=== PATIENT | female | born 1960 | race Caucasian/White ===

== ENCOUNTER 2019-01-26 09:10 | Day surgery (SDC) | payer BC ==
[~2019-01-26 09:10] MED LIST: Bupivacaine 0.25%/EPINEPHrine 1:200,000 10 ML SDV INJECT ONE; Lactated Ringers 1,000 ML IV SCH; Lidocaine 2% 5 ML SDV ONE; Midazolam 1 MG/ML 2 ML SDV ONE; Propofol 200 MG/20 ML SDV ONE; ceFAZolin 2 GM in Premix Bag 1 BAG IV ONE; fentaNYL 100 MCG/2 ML SDV ONE
--- NOTE | 2019-01-26 09:55 | PCM.PREANE ---
Preanesthetic Assessment - Anesthesia/Transfusion/Family Hx Anesthesia History: Prior Anesthesia Without Reaction Family History of Anesthesia Reaction: No Transfusion History: No Prior Transfusion(s) Intubation History: Unknown - Review of Systems General: No Symptoms Pulmonary: No Symptoms Cardiovascular: No Symptoms Gastrointestinal: No Symptoms Neurological: No Symptoms Other: Reports: None - Physical Assessment Height: 1.65 m Weight: 117.027 kg ASA Class: 2 Mental Status: Alert & Oriented x3 Airway Class: Mallampati = 2 Dentition: Reports: Normal Dentition, Peerless(s) (multiple One is upper front , right), Implants (x1 lower left (back)) Thyro-Mental Finger Breadths: 3 Mouth Opening Finger Breadths: 3 ROM/Head Extension: Full Lungs: Clear to Auscultation, Normal Respiratory Effort Cardiovascular: Regular Rate, Regular Rhythm - Allergies Allergies/Adverse Reactions: Allergies Allergy/AdvReac Type Severity Reaction Status Date / Time enalapril maleate Allergy Cough Verified 01/23/19 07:38 [From Vasotec] enalaprilat dihydrate Allergy Cough Verified 01/23/19 07:38 [From Vasotec] Sulfa (Sulfonamide Allergy Rash Verified 01/23/19 07:38 Antibiotics) - Blood Blood Available: No - Anesthesia Plan Pre-Op Medication Ordered: None - Acknowledgements Anesthesia Type Planned: MAC Pt an Appropriate Candidate for the Planned Anesthesia: Yes Alternatives and Risks of Anesthesia Discussed w Pt/Guardian: Yes Pt/Guardian Understands and Agrees with Anesthesia Plan: Yes PreAnesthesia Questionnaire HEENT History: Reports: Other (See Below) Other HEENT History: wears glasses, has one dental implant Cardiovascular History: Reports: Hypertension Respiratory History: Reports: None Gastrointestinal History: Reports: None Genitourinary History: Reports: None PATTERN SETTER History: Reports: Musculoskeletal History: Reports: Osteoarthritis, Other (See Below) (bilat. thumb trigger finger) Neurological History: Reports: None Psychiatric History: Reports: None Endocrine/Metabolic History: Reports: Hypothyroidism, Obesity/BMI 30+ Hematologic History: Reports: None Immunologic History: Reports: None Oncologic (Cancer) History: Reports: None Dermatologic History: Reports: None - Past Surgical History Head Surgeries/Procedures: Reports: None HEENT Surgical History: Reports: None Cardiovascular Surgical History: Reports: None Respiratory Surgical History: Reports: None GI Surgical History: Reports: Bariatric Procedure Other GI Surgeries/Procedures: bariatric gastric banding Female Surgical History: Reports: Other (See Below) Other Female Surgeries/Procedures: ovarian cystectomy Endocrine Surgical History: Reports: None Neurological Surgical History: Reports: None Musculoskeletal Surgical History: Reports: Carpal Tunnel (bilateral), Shoulder Surgery (left) Oncologic Surgical History: Reports: None Dermatological Surgical History: Reports: None - SUBSTANCE USE Smoking Status *Q: Never Smoker Recreational Drug Use History: No - HOME MEDS Home Medications: Home Meds Calcium Carbonate/Vitamin D3 [Calcium 500 mg Chewable Tablet] 1 tab.chew PO DAILY 05/21/16 [History] Diclofenac Sodium [Voltaren] 50 mg PO ASDIRECTED 05/21/16 [History] Fish Oil/[place]-3 Fatty Acids [Fish Oil 1,000 MG] 1 tab PO DAILY 05/21/16 [ History] Levothyroxine Sodium [Synthroid] 125 mcg PO DAILY 05/21/16 [History] Multivitamin [Multivitamins] 1 tab PO DAILY 05/21/16 [History] amLODIPine [Norvasc] 10 mg PO DAILY 05/21/16 [History] Vit B12/Fa/Pyridoxine HCl/AA15 [Glycotrol] 1 tab PO DAILY 05/24/16 [History] - CURRENT (IN HOUSE) MEDS Current Meds: Current Medications Lactated Ringer's (Ringers, Lactated) 1,000 mls @ 125 mls/hr IV ASDIRECTED RIO Discontinued Medications Bupivacaine HCl/Epinephrine Bitart (Marcaine 0.25%/Epinephrine 1:200,000) 10 ml INJECT ONETIME ONE Stop: 01/26/19 08:01 Fentanyl (Sublimaze) Confirm Administered Dose 100 mcg .ROUTE .STK-MED ONE Stop: 01/26/19 07:41 Cefazolin Sodium/Dextrose 2 gm (/ Premix) 50 mls @ 100 mls/hr IV ONETIME ONE Stop: 01/26/19 08:29 Lidocaine (Xylocaine-Mpf 2%) Confirm Administered Dose 5 ml .ROUTE .STK-MED ONE Stop: 01/26/19 07:41 Midazolam HCl (Versed 1 Mg/Ml) Confirm Administered Dose 2 mg .ROUTE .STK-MED ONE Stop: 01/26/19 07:41 Propofol (Diprivan 20 Ml) Confirm Administered Dose 200 mg .ROUTE .STK-MED ONE Stop: 01/26/19 07:41
[2019-01-26] MEDS ORDERED: Bupivacaine 25%/EPINEPHrine/PF 30 ML ONE (09:57)
[2019-01-26] MEDS ORDERED: Propofol 200 MG/20 ML SDV ONE (10:29)
[2019-01-26] MEDS ORDERED: ceFAZolin 1 GM Vial ONE (10:40)
[2019-01-26] MEDS ORDERED: Ondansetron 4 MG/2 ML SDV ONE (10:45)
[2019-01-26 11:28] VITALS: BP 136/66
--- NOTE | 2019-01-26 11:43 | PCM.POSTAN ---
POST ANESTHESIA ASSESSMENT - MENTAL STATUS Mental Status: Alert, Oriented - RESPIRATORY Respiratory Status: Respiratory Rate WNL, Airway Patent, O2 Saturation Stable - CARDIOVASCULAR CV Status: Pulse Rate WNL, Blood Pressure Stable - GASTROINTESTINAL GI Status: No Symptoms - PAIN Pain Score: 0 - POST OP HYDRATION Hydration Status: Adequate & Stable - OBSERVATIONS Free Text/Narrative:: no anesthesia problems, patient skipped recovery room.
--- NOTE | 2019-01-26 11:44 | PCM48HPAN ---
Post Anesthesia Note - EVALUATION WITHIN 48HRS OF ANESTHETIC Vital Signs in Normal Range: Yes Patient Participated in Evaluation: Yes Respiratory Function Stable: Yes Airway Patent: Yes Cardiovascular Function Stable: Yes Hydration Status Stable: Yes Pain Control Satisfactory: Yes Nausea and Vomiting Control Satisfactory: Yes Mental Status Recovered: Yes Resp Rate: 13 - COMMENTS/OBSERVATIONS Free Text/Narrative:: no anesthesia problems
--- NOTE | 2019-01-30 08:40 | PCM.OPNOTE ---
- General Post-Op/Procedure Note Date of Surgery/Procedure: 01/26/19 Operative Procedure(s): bilateral trigger thumb releases Pre Op Diagnosis: bilateral trigger thumb Post-Op Diagnosis: Same Anesthesia Technique: Local, MAC Primary Surgeon: Opal Horan Juvenile Court Judge: Yarely Smart Complications: None Condition: Good Free Text/Narrative:: [id number]
--- NOTE | 2019-01-30 14:52 | OR ---
SURGEON: CAROLINA ZAIDI MD DATE OF PROCEDURE: 01/26/2019 PREOPERATIVE DIAGNOSIS: Bilateral trigger thumb. POSTOPERATIVE DIAGNOSIS: Bilateral trigger thumb. PROCEDURE: Bilateral trigger thumb release. HOLTER TECHNICIAN: MARIANA Pollock. REASON FOR AND ROLE OF HOLTER TECHNICIAN: Retraction, prepping, draping, positioning and closure assistance. INDICATIONS: Ms. Carter is a 58-year-old female with bilateral trigger thumbs. Risks and benefits of release were discussed with her including, but not limited to, bleeding, infection, damage to underlying or overlying structures, possible need for future interventions, and possible scarring. PROCEDURE IN DETAIL: After informed consent was obtained and placed on chart, the patient was brought to the operating theater and laid in supine position. After adequate local MAC anesthesia was obtained, the area was prepped and draped, and a time-out was completed to confirm side and site. Attention was then paid to release of the A1 marco on the right side first. The arm was exsanguinated and the tourniquet was insufflated to 200 mmHg. Once the incision was made through skin, dissection was carried with blunt dissection through the subcutaneous tissues to avoid any cutaneous nerves. The A1 marco was directly visualized and released under direct visualization. The wound was then brought through range of motion and appropriate release was appreciated. Once adequately released, the skin was closed using 5-0 nylon stitch in a horizontal mattress fashion. It was dressed with Xeroform fluffs and a Kerlix gauze dressing, and a 2-inch Jose Enrique wrap. A symmetry procedure for the A1 marco on the left thumb was then completed on the opposite side taking care again for dissection through the skin first and then through the subcutaneous tissue using blunt dissection until direct visualization of the marco. Marco was released and again the tendon passed through range of motion to ensure complete release without triggering. Once adequately completed, the wound was closed and dressed again using 5-0 nylon stitch in a horizontal mattress fashion. Xeroform, fluffs, and a Kerlix gauze wrap and a 2-inch Jose Enrique wrap. The patient tolerated this well. All counts and needles were correct at the end of the case. FOLLOWUP INSTRUCTIONS: The patient will see us in 10 to 14 days, sooner if any problems, questions, or concerns. MARY / MODL /[id number] AP[place]ORVA
== END 2019-01-26 11:50 | disposition home or self-care (01) ==
LOC: MW.SDS 09:10
PROVIDERS: ATTEND Plastic Surgery
DX: M65.312 Trigger thumb, left thumb (principal); M65.311 Trigger thumb, right thumb; I10 Essential (primary) hypertension; E03.9 Hypothyroidism, unspecified; M17.11 Unilateral primary osteoarthritis, right knee; Z88.2 Allergy status to sulfonamides; Z88.8 Allergy status to other drugs, medicaments and biological substances; Z79.899 Other long term (current) drug therapy
CPT/HCPCS: 26055; J0690; J2001; J2250; J2405; J2704; J3010; J7120